=== PATIENT | male | born 1955 | race Caucasian/White ===

== ENCOUNTER → 2024-12-28 | Outpatient (CLI) | payer MEDICARE, OTHER, SELFPAY ==
[2025-01-01 18:08] LABS: QNTFERON TB Mitogen Value > 10.00 IU/mL (.); QNTFERON TB Nil Value 0.02 IU/mL (.); QNTFERON TB1+ Ag Value 0.02 IU/mL (.); QNTFERON TB2+ Ag Value 0.04 IU/mL (.); QNTIFERON TB Positive Criteria Negative (Negative)
== END | disposition home or self-care (01) ==
LOC: MTLAB 14:51
PROVIDERS: PCP Internal Medicine; Referring Provider Dermatology Pediatric Dermatology; Visit Provider Dermatology Pediatric Dermatology
DX: L40.0 Psoriasis vulgaris (principal); L02.93 Carbuncle, unspecified; Z79.899 Other long term (current) drug therapy
CPT/HCPCS: 36415; 86480